=== PATIENT | male | born 1975 | race Caucasian/White ===

== ENCOUNTER 2021-06-14 14:15 | Emergency (ER) | payer BC ==
[~2021-06-14] VITALS: Ht 180.3 cm; Wt 95.7 kg
[2021-06-14] MEDS ORDERED: TRAZODONE HCL100 MG PO (14:28)
[2021-06-14] MEDS ORDERED: ATIVAN1 M1 PO (14:28)
[2021-06-14] MEDS ORDERED: OXTELLAR XR150 MG PO (14:28)
== END 2021-06-14 16:24 | disposition home or self-care (01) ==
LOC: ER 14:15
DX: H43.391 Other vitreous opacities, right eye (principal); Z98.41 Cataract extraction status, right eye